=== PATIENT | female | born 1955 | race Caucasian/White ===

== ENCOUNTER → 2022-09-14 | Outpatient (CLI) | payer MEDICARE | END | disposition home or self-care (01) | LOC: RESCLI 15:03 | PROVIDERS: ATTEND Internal Medicine | DX: Y93.89 Activity, other specified (principal); T75.3XXA Motion sickness, initial encounter; J30.9 Allergic rhinitis, unspecified; R23.8 Other skin changes; N89.8 Other specified noninflammatory disorders of vagina; G43.909 Migraine, unspecified, not intractable, without status migrainosus; E73.9 Lactose intolerance, unspecified; L65.9 Nonscarring hair loss, unspecified; R25.2 Cramp and spasm; K59.00 Constipation, unspecified; E56.9 Vitamin deficiency, unspecified; H02.059 Trichiasis without entropion unspecified eye, unspecified eyelid; R73.09 Other abnormal glucose; R11.2 Nausea with vomiting, unspecified; F41.9 Anxiety disorder, unspecified; Z88.8 Allergy status to other drugs, medicaments and biological substances; Z98.890 Other specified postprocedural states; E78.5 Hyperlipidemia, unspecified; Z79.899 Other long term (current) drug therapy; Y99.8 Other external cause status ==

== ENCOUNTER → 2023-09-26 | Outpatient (CLI) | payer MEDICARE | END | disposition home or self-care (01) | LOC: RESCLI 02:12 | PROVIDERS: ATTEND Student in an Organized Health Care Education/Training Program | DX: F41.9 Anxiety disorder, unspecified (principal); E78.5 Hyperlipidemia, unspecified; N89.8 Other specified noninflammatory disorders of vagina; R23.8 Other skin changes; K59.00 Constipation, unspecified; J30.9 Allergic rhinitis, unspecified; E73.9 Lactose intolerance, unspecified; R25.2 Cramp and spasm; R73.09 Other abnormal glucose; E56.9 Vitamin deficiency, unspecified; Z79.899 Other long term (current) drug therapy; K58.9 Irritable bowel syndrome, unspecified; Z82.49 Family history of ischemic heart disease and other diseases of the circulatory system; Z88.8 Allergy status to other drugs, medicaments and biological substances; Z88.0 Allergy status to penicillin ==